=== PATIENT | female | born 2005 | race Caucasian/White ===

== ENCOUNTER 2024-02-25 06:28 | Outpatient (REF) | payer OTHER, SELFPAY | END 2024-02-25 06:29 | disposition home or self-care (01) | LOC: HO.UMASIMG 06:28 | PROVIDERS: Visit Provider Family Medicine | DX: Z13.89 Encounter for screening for other disorder (principal) ==

== ENCOUNTER 2024-02-27 10:11 | Outpatient (REF) | payer OTHER, SELFPAY ==
--- NOTE | ~2024-02-27 | US_ITS ---
EXAMINATION: US SOFT TISSUE HEAD/NECK CLINICAL INFORMATION: Palpable lump left posterior neck for 6 months, no change in size per patient. Left proximal posterior neck. COMPARISON: None available. TECHNIQUE: Linear transducer perdomo-scale and color Doppler examination of the left proximal posterior neck. FINDINGS: Targeted ultrasound images were obtained by the director commercial sales of the area of concern as indicated by the patient in the left posterior proximal neck and demonstrated a 0.6 x 0.3 x 0.6 cm oval, hypoechoic solid mass with well-defined margins and no significant internal vascularity, possibly representing an atypical lymph node. Radiologist was not in attendance. Images were later provided for interpretation. US/US soft tiss head and/or neck IMPRESSION: 0.6 cm oval, hypoechoic solid mass with well-defined margins and no significant internal vascularity, possibly representing an atypical lymph node. Decisions regarding further management should be based on the clinical assessment. Follow-up ultrasound could be considered in 3 months.
== END 2024-02-27 10:12 | disposition home or self-care (01) ==
LOC: HO.UMASIMG 10:11
PROVIDERS: Visit Provider Family Medicine
DX: M54.2 Cervicalgia (principal)
CPT/HCPCS: 76536

== ENCOUNTER 2024-03-16 14:21 | Outpatient (REF) | payer OTHER, SELFPAY ==
--- NOTE | ~2024-03-16 | US_ITS ---
EXAMINATION: US SOFT TISSUE NECK CLINICAL INFORMATION: Enlarged lymph node COMPARISON: Soft tissue ultrasound 02/27/2024 TECHNIQUE: Ultrasound of the neck soft tissues is performed with high- frequency perdomo-scale imaging and color Doppler. FINDINGS: Previously seen palpable lymph node in the left neck was not identified sonographically. A 0.6 cm nonenlarged posterior occipital node is seen, which is unremarkable. No cervical lymphadenopathy. US/US soft tiss head and/or neck IMPRESSION: A previously seen palpable node in the left neck was no longer identified. No cervical lymphadenopathy.
== END 2024-03-16 14:22 | disposition home or self-care (01) ==
LOC: HO.US 14:21
PROVIDERS: PCP Pediatrics; Visit Provider Family Medicine
DX: R22.1 Localized swelling, mass and lump, neck (principal)
CPT/HCPCS: 76536

== ENCOUNTER 2025-02-09 06:25 | Outpatient (REF) | payer OTHER, SELFPAY ==
--- OUTSIDE RECORDS SUMMARY | 2025-02-09 06:28 | XMS_ITS | Encounter Summary ---
Author Organization [facility] Address [address] [place] [address] Care Team Providers Care Extruding Press Adjuster Name Role Phone Maida Yang MD Primary Care Provider +1- [phone] Encounter Details Date Type Department Care Team (Late st Contact Info) Description 01/04/2014 Scanned Document [facility] [address] [place] [address] External, Provider Social History Tobacco Use Types Packs/Day Years Used Date Smoking Tobacco: Never Assessed Comments Unknown Sex and Gender Information Value Date Recorded Sex Assigned at Not on file Legal Sex Female 6:19 AM EST Gender Identity Not on file Sexual Orientation Not on file documented as of this encounter Plan of Treatment Upcoming Encounters Date Type Department Care Team (Late st Contact Info) Description 02/25/2025 1:30 PM EDT Office Visit [facility] [address] [place] [address] Jaqueline Arellano PA [address] [place] [address] [address] [place] [phone] 03/08/2025 1:30 PM EDT Office Visit [facility] RAMP AND CARGO SUPERVISOR [address] [place] [address] Malinda Martinez MD [address] [place] [phone] documented as of this encounter Visit Diagnoses Not on filedocumented in this encounter Care Teams Extruding Press Adjuster Relationship Specialty Start Date End Date Maida Yang MD [address] [place] [phone] PCP - General Pediatrics 03/21/20 documented as of this encounter
--- OUTSIDE RECORDS SUMMARY | 2025-02-09 06:29 | XMS_ITS | Encounter Summary ---
Author Organization [facility] Address [address] [place] [address] Care Team Providers Care English Adjunct Faculty Name Role Phone Maida Yang MD Primary Care Provider +1- [phone] Reason for Visit * Reason Comments Other Encounter Details Date Type Department Care Team (Late st Contact Info) Description 03/28/2022 Telephone [facility] [address] [address] Maida Yang MD [address] [place] [phone] Other Social History Tobacco Use Types Packs/Day Years Used Date Smoking Tobacco: Never Assessed PHQ-2 Answer Date Recorded PHQ-2 Total Score 0 10/04/2021 Comments No Sex and Gender Information Value Date Recorded Sex Assigned at Not on file Legal Sex Female 6:19 AM EST Gender Identity Not on file Sexual Orientation Not on file documented as of this encounter Miscellaneous Notes * Telephone Encounter - Norma Easton - 03/28/2022 4:18 PM EDT When you get a chance, would you be able to give Sangita a call in regards to her back pain and motionsickness (potentially a nausea patch because they will be in the car a lot on their vacation). Thank you! * Telephone Encounter - Norma Easton - 03/28/2022 10:07 AM EDT [facility] mail order service called for a refill prescription for Sangita. JUNE11/30, , 1 mg-20 mcg (21)/75 mg (7) per tablet The call back number is option 2 (reference [id number]). documented in this encounter Plan of Treatment Upcoming Encounters Date Type Department Care Team (Late st Contact Info) Description 02/25/2025 1:30 PM EDT Office Visit [facility] [address] [address] Jaqueline Arellano PA [address] [place] [address] [phone] 03/08/2025 1:30 PM EDT Office Visit [facility] GENERATION MANAGER [address] [address] Malinda Martinez MD [address] [place] [phone] documented as of this encounter Visit Diagnoses Not on filedocumented in this encounter Additional Health Concerns Assessment Noted Time PHQ-9 Depression Total Score: 2 10/04/20 21 11:23 AM EST documented as of this encounter Care Teams English Adjunct Faculty Relationship Specialty Start Date End Date Maida Yang MD [address] [place] [phone] PCP - General Pediatrics 03/21/20 documented as of this encounter
--- OUTSIDE RECORDS SUMMARY | 2025-02-09 06:29 | XMS_ITS | Encounter Summary ---
Author Organization [facility] Address [address] [place] [address] Care Team Providers Care Reproduction Specialist Name Role Phone Maida Yang MD Primary Care Provider +1- [phone] Reason for Visit * Reason Comments Medication Refill Encounter Details Date Type Department Care Team (Late st Contact Info) Description 03/09/2023 Refill [facility] [address] [address] Maida Yang MD [address] [place] [phone] Medication Refill Social History Tobacco Use Types Packs/Day Years Used Date Smoking Tobacco: Never Smokeless Tobacco: Never PHQ-2 Answer Date Recorded PHQ-2 Total Score 1 01/23/2023 Comments No Sex and Gender Information Value Date Recorded Sex Assigned at Not on file Legal Sex Female 6:19 AM EST Gender Identity Not on file Sexual Orientation Not on file documented as of this encounter Miscellaneous Notes * Telephone Encounter - Haley Goode RN - 03/11/2023 10:36 AM EDT Reviewed chart: 01/23/2023 Refilled x3 F/u in a year documented in this encounter Plan of Treatment Upcoming Encounters Date Type Department Care Team (Late st Contact Info) Description 02/25/2025 1:30 PM EDT Office Visit [facility] [place] [address] [facility] [address] [place] [address] Jaqueline Arellano PA [address] [place] [address] [address] [place] [phone] 03/08/2025 1:30 PM EDT Office Visit [facility] THREAD WEAVER [place] [address] [address] Malinda Martinez MD [address] [place] [address] [address] [place] [phone] documented as of this encounter Visit Diagnoses Not on filedocumented in this encounter Additional Health Concerns Assessment Noted Time PHQ-9 Depression Total Score: 3 01/24/20 23 2:12 PM EDT documented as of this encounter Care Teams Reproduction Specialist Relationship Specialty Start Date End Date Maida Yang MD [address] [place] [phone] PCP - General Pediatrics 03/21/20 documented as of this encounter
--- OUTSIDE RECORDS SUMMARY | 2025-02-09 06:29 | XMS_ITS | Data Portability ---
Author Organization [facility], [facility]_Endocrinology_73_[facility] Address [address] [place] [phone] Assessment Encounter Date Assessment Date Assessment LastModified by Organization Details LastModified Time 05/08/2023 05/08/2023 17F with 17 degree thoracolumbar scoliosis and chronic thoracic and lumbar back pain. Imaging reviewed with patient. Diagnosis and treatment options discussed with patient. Recommend conservative treatment including rest, activity modification, stretching and strengthening exercises, heat or ice as tolerated. Recommend trial of physical therapy. Discussed importance of core strengthening. - physical therapy rx provided - NSAIDs as needed for pain and inflammation - follow up 6 weeks for re-eval, sooner if symptoms change or worsen - all questions answered leighton Not available 05/09/2023 14:20:15 Plan of Treatment Reminders Order Date Submit Date Provider Last Modified By Organization Details Last Modified Time Details Appointments None recorded. Lab None recorded. Referral None recorded. Procedures None recorded. Surgeries None recorded. Imaging XR, thoracolumb ar spine, 2 or 3 view 2022 023 [email or web address] [facility] Rad[facility] ? Ortho, [address] [place], [address], 14:20:36 Medication Orders None recorded. Patient TargetsNo targets recorded. Patient InstructionsNo instructions recorded. Reason for Referral None Reported. 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 Medical Equipment None Reported. Allergies No known drug allergies Medications Name Sig Start Date Stop Date Status Note LastModified by Organization Details LastModified Time amoxicillin 875 mg tablet TAKE 1 TABLET BY MOUTH EVERY 12 HOURS FOR 7 DAYS. active Not Available Not Available No t Available ketoconazole 2 % topical cream APPLY A SMALL AMOUNT TO AFFECTED AREA ONCE A DAY active Not Available Not Available No t Available ondansetron 4 mg disintegrating tablet active Not Available Not Available Not Available azithromycin 500 mg tablet TAKE 1 TABLET EVERY DAY FOR 5 DAYS active Not Available Not Available No t Available 11/30 (28) 1 mg-20 mcg (21)/75 mg (7) tablet TAKE 1 TABLET BY MOUTH EVERY DAY active Not Available Not Available No t Available Vitals None Recorded Social History None recorded. Functional Status None recorded. Mental Status None recorded. Family History Nothing Reported. Medical History No medical history recorded. Gynecological HistoryNo gynecological history recorded. Obstetrics History GPAL:G 0 P 0 0 0 0 Past Encounters Encounter ID Performer Location Encounter Start Date Encounter Closed Date Diagnosis/Indication Diagnosis SNOMED-CT Code Diagnosis ICD10 Code Diagnosis Note [id number] Hannah Sorensen [facility] [address] [address] 4 05/08/2023 13:39:14 05/09/2023 14:20:36 Chronic back pain 400473649 M54.59 Adolescent idiopathic scoliosis of thoracolumbar spine 2371811200 10293 M41.125 Health Concerns Section Related Observation LastModified by Organization Detai ls LastModified Time None Recorded Concern Status LastModified by Organization Details LastModified Time None Recorded Advance Directives Directive None Recorded Payers Encounter Date Sequence Insurance Name Policy Number Policy Serrano Covered Member ID Serrano Member ID Guarantor Name 05/08/2023 1 R [id number] Nalini Cronin [id number] Sangita Cronin Notes Date Note Type Note Provider Name and Address Organization Details Recorded Time 05/08/2023 text/html 17F presents for orthopedic evaluation of upper and low back pain that started approximately 4 years ago. She reports current right-sided thoracic pain. Reports over this past year, she has been studying and leaning forwards at a desk which has worsened her pain. Reports low back pain worse with standing for periods of time that lingers after sitting or laying down. Reports pain is thoracic and lumbar spine. Describes pain as burning at times. Reports remote history of tailbone fracture. Hannah Sorensen [facility] 05/09/2023 14:20:29 OBGyn Episode No OBEpisode recorded.
--- OUTSIDE RECORDS SUMMARY | 2025-02-09 06:29 | XMS_ITS | Encounter Summary ---
Author Organization [facility] Address [address] [place] [address] Care Team Providers Care Field Collector Name Role Phone Maida Yang MD Primary Care Provider +1- [phone] Encounter Details Date Type Department Care Team (Late st Contact Info) Description 11/28/2016 Scanned Document [facility] [address] [place] [address] External, Provider Social History Tobacco Use Types [...] PM EDT Office Visit [facility] [address] [place] [address] Jaqueline Arellano PA [address] [place] [address] [address] [place] [phone] 03/08/2025 1:30 PM EDT Office Visit [facility] FORKLIFT MECHANIC [address] [place] [address] Malinda Martinez MD [address] [place] [phone] documented as of this encounter Visit Diagnoses Not on filedocumented in this encounter Additional Health Concerns Assessment Noted Time PHQ-9 Depression Total Score: 0 07/25/20 16 5:14 PM EDT documented as of this encounter Care Teams Field Collector Relationship Specialty Start Date End Date Maida Yang MD [address] [place] [phone] PCP - General Pediatrics 03/21/20 documented as of this encounter
--- OUTSIDE RECORDS SUMMARY | 2025-02-09 06:29 | XMS_ITS | Encounter Summary ---
Author Organization [facility] Address [address] [place] [address] Care Team Providers Care Yard Conductor Name Role Phone Maida Yang MD Primary Care Provider +1- [phone] Encounter Details Date Type Department Care Team (Late st Contact Info) Description 04/10/2016 Scanned Document [facility] [address] [place] [address] External, Provider Social History Tobacco Use Types [...] PM EDT Office Visit [facility] [address] [place] [address] Jaqueline Arellano PA [address] [place] [address] [address] [place] [phone] 03/08/2025 1:30 PM EDT Office Visit [facility] DIRECTOR OF FRONT OFFICE [address] [place] [address] Malinda Martinez MD [address] [place] [phone] documented as of this encounter Visit Diagnoses Not on filedocumented in this encounter Care Teams Yard Conductor Relationship Specialty Start Date End Date Maida Yang MD [address] [place] [phone] PCP - General Pediatrics 03/21/20 documented as of this encounter
--- OUTSIDE RECORDS SUMMARY | 2025-02-09 06:29 | XMS_ITS | Clinical Summary ---
Author Organization [place] [facility] Address [address] [place] [address] Care Team Providers Care Database Administrator Name Role Phone Maida Yang MD Primary Care Provider +1- [phone] Allergies Active Allergy Reactions Criticality Noted Date Comments Amoxicillin Rash Low 12/03/2023 Medications levonorgestrel- ethinyl estradiol (AVIANE,ALESSE, LESSINA) 0.1-20 mg-mcg per tablet Take 1 tablet by mouth daily. 84 tablet 3 5 Active levonorgestrel- ethinyl estradiol (AVIANE,ALESSE, LESSINA) 0.1-20 mg-mcg per tablet Take 1 tablet by mouth daily. 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 Encounters Date Type Department Care Team Description 02/04/2025 Telephone [facility] MOTION PICTURE COMMENTATOR [place] [address] [facility] [address] [place] [address] Malinda Martinez MD Medication Refill 02/02/2025 Orders Only [facility] [place] [address] [place] [address] Linh Hawthorne, BRANDON 02/01/2025 Telephone [facility] [address] [place] [address] Malinda Martinez MD Medication Refill; Appointment from Last 3 Months Immunizations Name Administration Dates Next Due COVID-19 Vaccine - PFIZER 03/14/2021,02/21/2021 DTaP 08/03/2008, 5,02/22/2004,01/17,2003 HPV9 08/08/2017,07/25/2016 Hep A, ped/adol, 2 dose 08/08/2007,08/08/2006 Hep B, adolescent or pediatric 05/26/2004,2003,2003 Hib (PRP-T) 02/06/2005, 4,01/18/2004,11/19 Influenza, injectable, quadr ivalent, preservative free 10/04/2021,08/25/2020,08/19/2019,08/18,08/08/2017,07/25/2016,07/13/2015 ,07/06/2014 Influenza, live, trivalent, intranasal 3,08/26/2012,08/02/2011 Influenza, seasonal, injecta ble, preservative free 11/28/2004,09/13/2004 Influenza, split virus, triv alent, Preservative Free 08/10/2010,11/27/2006,10/12/2005 MMR 08/08/2007,08/08/2004 Meningococcal B, OMV (Bexsero) 11/30/2021,2020 Meningococcal MCV4O - Menveo 07/13/2015 Meningococcal MCV4P - Menactra 08/19/2019 Pneumococcal conjugate PCV 7 11/28/2004, 02/22/2004,2003,11/19 Polio (IPV) 08/03/2008, 5,01/18/2004,12/20 Tdap 07/06/2014 Varicella, live 11/28/2007,08/08/2007 Family History Medical History Relation Name Comments Diabetes Father Heart disease Father High cholesterol Father Hypertension Maternal Grandfather High cholesterol Maternal Grandmother Asthma Mother Heart disease Paternal Grandfather Heart disease Paternal Uncle Relation Name Status Comments Father Alive Maternal Grandfather Maternal Grandmother Mother Alive Paternal Grandfather Paternal Uncle Social History Tobacco Use Types Packs/Day Years Used Date Smoking Tobacco: Never Smokeless Tobacco: Never Tobacco Cessation:Counseling Given: Not Answered Alcohol Use Standard Drinks/Week Comments Yes 0 (1 standard drink = 0.6 oz pur e alcohol) Occasionally PHQ-2 Answer Date Recorded PHQ-2 Total Score 1 01/23/2023 Comments No Sex and Gender Information Value Date Recorded Sex Assigned at Not on file Legal Sex Female 6:19 AM EST Gender Identity Not on file Sexual Orientation Not on file Last Filed Vital Signs Vital Sign Reading Time Taken Comments Blood Pressure 110/70 12/03/2023 2:48 PM EST Pulse 84 01/23/2023 2:08 PM EDT Temperature 36.6 ??C (97.9 ??F) 11/30/2021 4:13 PM ES T Respiratory Rate 16 10/02/2020 3:05 PM EST Oxygen Saturation 99% 01/23/2023 2:08 PM EDT Inhaled Oxygen Concentration - - Weight 94.3 kg (208 lb) 12/03/2023 2:48 PM EST Height 180.3 cm (5' 11 ) 12/03/2023 2:48 PM EST Body Mass Index 29.01 12/03/2023 2:48 PM EST Plan of Treatment Upcoming Encounters Date Type Department Care Team (Late st Contact Info) Description 02/25/2025 1:30 PM EDT Office Visit [facility] [address] [place] [address] Jaqueline Arellano PA [address] [place] [address] [address] [place] [address] 03/08/2025 1:30 PM EDT Office Visit [facility] MOTION PICTURE COMMENTATOR [address] [place] [address] Malinda Martinez MD [address] [facility] [address] [place] [address] Health Maintenance Due Date Last Done Comments Hepatitis C screening 2021 DTaP/TDaP Vaccines (7 - Td or Tdap) 07/06/2024 07/06/2014, 08/03/2008, 02/06/2005, Additional history exists Tetanus adult (Td q 10,TDAP once) 07/06/2024 07/06/2014, 08/03/2008, 02/06/2005, Additional history exists Covid-19 vaccine series ( season) 2024 03/14/2021, 02/21/2021 Cervical cancer screening 2024 Chlamydia screening 12/03/2024 12/03/2023, 12/03/2023, 01/23/2023, Additional history exists Influenza Vaccine Pediatric (Season Ended) 2025 10/04/2021, 08/25/2020, 08/19/2019, Additional history exists RSV Immunization (1 - 1-dose 75+ series) 2078 Hepatitis B vaccine series Completed 05/26, 2003, 2003 Pneumococcal Vaccine (2 - 49 years) Completed 11/28/2004, 02/22/2004, 2003, Additional history exists HIB Vaccines Completed 02/06/2005, 02/09, 01/18/2004, Additional history exists Hepatitis A Vaccines Completed 08/08/2007, 08/08/20 06 MMR Vaccines Completed 08/08/2007, 08/08/2004 Varicella Vaccines Completed 11/28/2007, 08/08/2007 IPV Vaccines Completed 08/03/2008, 01/10, 01/18/2004, Additional history exists HPV vaccine series Completed 08/08/2017, 07/25/2016 Meningococcal Vaccine Completed 08/19/2019, 015 HIV screening Completed 10/04/2021 Rotavirus Vaccines Aged Out No longer eligible based on patient's age to complete this topic Procedures Procedure Name Priority Date/Time Associated Diagnosis Comments CHLAMYDIA TRACHOMATIS, NAAT (LAB ORDER ONLY) ([facility] L LMW Y) Routine 12/03/2023 8:27 PM EST Well woman exam with routine gynecological exam Encounter for initial prescription of contraceptive pills HIV-I/O/2 AG/AB (4TH GEN) PRELIM W/CASCADE TO SUPP TESTING (L) Routine 10/04/2021 12:02 PM EST from Last 3 Months or Most Recently Relevant to Health Maintenance Results * Chlamydia trachomatis, NAAT ([facility] Y) (12/03/2023 8:27 PM EST) Chlamydia DNA Probe Negative Negative 12/04/2023 6:00 AM EST [facility] DEPARTMENT OF LABORATORY MEDICINE Specimen Source Vagina 12/04/2023 6:00 AM EST [facility] DEPARTMENT OF PATHOLOGY Swab SPECIMEN FROM VAGINA / Unknown Collection / Unknown 12/03/2023 8:27 PM EST 12/03/2023 8:31 PM EST us Malinda Martinez MD MICROBIOLOGY - GENERAL ORDERABL ES Final Result [facility] DEPARTMENT OF LABORATORY MEDICINE [address] [place] [address], [facility] [phone] [facility] DEPARTMENT OF PATHOLOGY [address] [place] [address] * HIV-I/O/2 Ag/Ab (4th gen) prelim w/cascade to supp testing (L) (10/04/2021 12:02 PM EST) HIV Screen 4th Genreation w/Reflex Non Reactive Non Reactive [facility] 1 10/04/2021 12:0 2 PM EST 10/04/2021 Narrative [facility] - 10/07/2021 11:05 PM EST Performed at: ??01 - [facility] [address] ??[id number] Airborne Operations: Sherry Agustin MD, Phone: ??[phone] Maida Yang MD LAB BLOOD ORDERABLES Final Result [facility] 1 from Last 3 Months or Most Recently Relevant to Health Maintenance Insurance UMR UMR UMR UMR Care Teams Database Administrator Relationship Specialty Start Date End Date Maida Yang MD [address] [place] [phone] PCP - General Pediatrics 03/21/20
--- OUTSIDE RECORDS SUMMARY | 2025-02-09 06:29 | XMS_ITS | Encounter Summary ---
Author Organization [facility] Address [address] [place] [address] Care Team Providers Care Plant Accountant Name Role Phone Maida Yang MD Primary Care Provider +1- [phone] Reason for Visit * Reason Comments Medication Refill Encounter Details Date Type Department Care Team (Late st Contact Info) Description 12/23/2022 Refill [facility] [address] [address] Maida Yang MD [address] [place] [phone] Medication Refill Social History Tobacco Use [...] Encounters Date Type Department Care Team (Late Contact Info) Description 02/25/2025 1:30 PM EDT Office Visit [facility] [address] [place] [address] Jaqueline Arellano PA [address] [place] [address] [address] [place] [address] 03/08/2025 1:30 PM EDT Office Visit [facility] GROUP SUPERVISOR YARD [address] [place] [address] Malinda Martinez MD 145 [facility] [address] [place] [address] documented as of this encounter Visit Diagnoses Not on filedocumented in this encounter Additional Health Concerns Assessment Noted Time PHQ-9 Depression Total Score: 2 10/04/20 21 11:23 AM EST documented as of this encounter Care Teams Plant Accountant Relationship Specialty Start Date End Date Maida Yang MD [address] [place] [phone] PCP - General Pediatrics 03/21/20 documented as of this encounter
--- OUTSIDE RECORDS SUMMARY | 2025-02-09 06:29 | XMS_ITS | Encounter Summary ---
Author Organization [facility] Address [address] [place] [address] Care Team Providers Care Cilnical Scientist Name Role Phone Maida Yang MD Primary Care Provider +1- [phone] Encounter Details Date Type Department Care Team (Late st Contact Info) Description 02/02/2025 Orders Only [facility] [address] [place] [address] Linh Hawthorne, BRANDON Social History Tobacco Use Types Packs/Day Years Used Date Smoking Tobacco: Never Smokeless Tobacco: Never Alcohol Use Standard Drinks/Week Comments Yes 0 [...] Description 02/25/2025 1:30 PM EDT Office Visit [facility] Family Medicine [address] [place] [address] Jaqueline Arellano PA [address] [place] [address] [address] [place] [address] 03/08/2025 1:30 PM EDT Office Visit [facility] PAD CUTTER [address] [place] [address] Malinda Martinez MD [address] [facility] [address] [place] [phone] documented as of this encounter Visit Diagnoses Not on filedocumented in this encounter Additional Health Concerns Assessment Noted Time PHQ-9 Depression Total Score: 3 01/24/20 23 2:12 PM EDT documented as of this encounter Care Teams Cilnical Scientist Relationship Specialty Start Date End Date Maida Yang MD [address] [place] [phone] PCP - General Pediatrics 03/21/20 documented as of this encounter
--- OUTSIDE RECORDS SUMMARY | 2025-02-09 06:29 | XMS_ITS | Encounter Summary ---
Author Organization [facility] Address [address] [place] [address] Care Team Providers Care Sheriff'S Detective Name Role Phone Maida Yang MD Primary Care Provider +1- [phone] Encounter Details Date Type Department Care Team (Late st Contact Info) Description 12/30/2018 Scanned Document [facility] Pediatrics [address] [id number] External, Provider Social History Tobacco Use Types Packs/Day Years Used Date Smoking Tobacco: Never Assessed Comments No Sex and Gender Information Value Date Recorded Sex Assigned at Not on file Legal Sex Female 6:19 AM EST Gender Identity Not on file Sexual Orientation Not on file documented as of this encounter Plan of Treatment Upcoming Encounters Date Type Department Care Team (Late Contact Info) Description 02/25/2025 1:30 PM EDT Office Visit [facility] [place] 90 [facility] [address] [place] [address] Jaqueline Arellano PA [address] [place] [address] [address] [place] [phone] 03/08/2025 1:30 PM EDT Office Visit [facility] AIR BAG STRIPPER [address] [place], [place] [address] Malinda Martinez MD [address] [place] [phone] documented as of this encounter Visit Diagnoses Not on filedocumented in this encounter Additional Health Concerns Assessment Noted Time PHQ-9 Depression Total Score: 1 08/18/20 18 3:01 PM EDT documented as of this encounter Care Teams Sheriff'S Detective Relationship Specialty Start Date End Date Maida Yang MD [address] [place] [phone] PCP - General Pediatrics 03/21/20 documented as of this encounter
--- OUTSIDE RECORDS SUMMARY | 2025-02-09 06:29 | XMS_ITS | Encounter Summary ---
Author Organization [facility] Address [address] [place] [address] Care Team Providers Care Ad Taker Name Role Phone Maida Yang MD Primary Care Provider +1- [phone] Reason for Visit * Reason Onset Date Comments Medication Refill 02/04/2025 Encounter Details Date Type Department Care Team (Late st Contact Info) Description 02/04/2025 Telephone [facility] RELIGIOUS ASSISTANT [address] [place] [address] Malinda Martinez MD [address] [place] [address] [address] [place] [address] Medication Refill Social History Tobacco Use Types [...] as of this encounter Miscellaneous Notes * Addendum Note - Malinda Martinez MD - 02/04/2025 1:51 PM EDTAddended by: MALINDA MARTINEZ on: 02/04/2025 01:51 PM Modules accepted: Orders * Telephone Encounter - Lavern Marcum - 02/04/2025 10:29 AM EDT Medication: Medication Request Message from the Tree Surgeon Helper What is the medication name? Levonorgestrel-ethinyl estradiol Dosage and frequency? Is the request for a new medication or a refill? Refill, patient looking to have prescription sent to [facility] NOTE: If applicable for chronic medication refills, pend for 90:4. Confirmed w/ Patient Preferred Pharmacy: [facility] [address] [place] [phone] Last office visit in this dept.: Visit date not found Next office visit in this dept.: 03/08/2025 documented in this encounter Plan of Treatment Upcoming Encounters Date Type Department Care Team (Late st Contact Info) Description 02/25/2025 1:30 PM EDT Office Visit [facility] [address] [place] [address] Jaqueline Arellano PA [address] [place] [address] [address] [place] [phone] 03/08/2025 1:30 PM EDT Office Visit [facility] RELIGIOUS ASSISTANT [place] [address] [phone] Malinda Martinez MD 145 [facility] 215 [place] [phone] documented as of this encounter Visit Diagnoses Not on filedocumented in this encounter Additional Health Concerns Assessment Noted Time PHQ-9 Depression Total Score: 3 01/24/20 23 2:12 PM EDT documented as of this encounter Care Teams Ad Taker Relationship Specialty Start Date End Date Maida Yang MD [address] [place] [address] PCP - General Pediatrics 03/21/20 documented as of this encounter
== END 2025-02-09 06:26 | disposition home or self-care (01) ==
LOC: HO.UMASIMG 06:25
PROVIDERS: Visit Provider Family Medicine
DX: Z13.89 Encounter for screening for other disorder (principal)

== ENCOUNTER 2025-02-11 06:39 | Outpatient (REF) | payer OTHER, SELFPAY ==
--- NOTE | ~2025-02-11 | US_ITS ---
CLINICAL HISTORY: Left posterior cervical node US neck Comparison: None Findings: The posterior neck near the base of the skull scanned. There is a circumscribed hypoechoic 0.6 x 0.3 x 0.3 cm mass, possible benign lymph node. There are no other cystic or solid masses and no pathological appearing lymph nodes. Impression: 1. Possible benign lymph node corresponding to patient's lump. Clinical follow-up recommended. This document has been electronically signed by: Dario Will MD on 02/12/2025 09:06:50
--- OUTSIDE RECORDS SUMMARY | 2025-02-11 06:49 | XMS_ITS | Encounter Summary ---
Author Organization [facility] Address [address] [place] [address] Care Team Providers Care Baby Sitter Name Role Phone Maida Yang MD Primary Care Provider +1- [phone] Reason for Visit * Reason Comments Other Encounter Details Date Type Department Care Team (Late st Contact Info) Description 03/28/2022 Telephone [facility] Pediatrics [address] [address] Maida Yang MD [address] [place] [phone] Other Social History Tobacco Use Types [...] Norma Easton - 03/28/2022 10:07 AM EDT [facility] Pharmacy's mail order service called for a refill prescription for Sangita. JUNE11/30, , 1 mg-20 mcg (21)/75 mg (7) per tablet The call back number is option 2 (reference [id number]). documented in this encounter Plan of Treatment Upcoming Encounters Date Type Department Care Team (Late st Contact Info) Description 02/25/2025 1:30 PM EDT Office Visit [facility] Family Medicine [address] [address] Jaqueline Arellano PA [address] [place] [address] [phone] 03/08/2025 1:30 PM EDT Office Visit [facility] SENIOR PLANNING MANAGER [address] [address] Malinda Martinez MD [address] [place] [phone] documented as of this encounter Visit Diagnoses Not on filedocumented in this encounter Additional Health Concerns Assessment Noted Time PHQ-9 Depression Total Score: 2 10/04/20 21 11:23 AM EST documented as of this encounter Care Teams Baby Sitter Relationship Specialty Start Date End Date Maida Yang MD [address] [place] [phone] PCP - General Pediatrics 03/21/20 documented as of this encounter
--- OUTSIDE RECORDS SUMMARY | 2025-02-11 06:49 | XMS_ITS | Encounter Summary ---
Author Organization [facility] Address [address] [place] [address] Care Team Providers Care Sales Project Engineer Name Role Phone Maida Yang MD Primary Care Provider +1- [phone] Encounter Details Date Type Department Care Team (Late st Contact Info) Description 02/02/2025 Orders Only [facility] [address] [place] [address] Linh Hawthorne, BRANDON Social History Tobacco Use [...] Description 02/25/2025 1:30 PM EDT Office Visit [facility] Family Medicine [address] [place] [address] Jaqueline Arellano PA [address] [place] [address] [address] [place] [address] 03/08/2025 1:30 PM EDT Office Visit [facility] ROLLOFF TRUCK DRIVER [address] [place] [address] Malinda Martinez MD 145 [facility] 215 [place] [phone] documented as of this encounter Visit Diagnoses Not on filedocumented in this encounter Additional Health Concerns Assessment Noted Time PHQ-9 Depression Total Score: 3 01/24/20 23 2:12 PM EDT documented as of this encounter Care Teams Sales Project Engineer Relationship Specialty Start Date End Date Maida Yang MD [address] [place] [phone] PCP - General Pediatrics 03/21/20 documented as of this encounter
--- OUTSIDE RECORDS SUMMARY | 2025-02-11 06:49 | XMS_ITS | Encounter Summary ---
Author Organization [facility] Address [address] [place] [address] Care Team Providers Care Bounty Trapper Name Role Phone Maida Yang MD Primary Care Provider +1- [phone] Encounter Details Date Type Department Care Team (Late st Contact Info) Description 12/30/2018 Scanned Document [facility] Pediatrics [address] [phone] External, Provider Social History Tobacco Use Types [...] PM EDT Office Visit [facility] [place] 90 [facility] [address] [place] [address] Jaqueline Arellano PA [address] [place] [address] [address] [place] [phone] 03/08/2025 1:30 PM EDT Office Visit [facility] DISTRICT COMMERCIAL SUPERINTENDENT [address] [place], [place] [address] Malinda Martinez MD [address] [place] [phone] documented as of this encounter Visit Diagnoses Not on filedocumented in this encounter Additional Health Concerns Assessment Noted Time PHQ-9 Depression Total Score: 1 08/18/20 18 3:01 PM EDT documented as of this encounter Care Teams Bounty Trapper Relationship Specialty Start Date End Date Maida Yang MD [address] [place] [phone] PCP - General Pediatrics 03/21/20 documented as of this encounter
--- OUTSIDE RECORDS SUMMARY | 2025-02-11 06:49 | XMS_ITS | Encounter Summary ---
Author Organization [facility] Address [address] [place] [address] Care Team Providers Care Fountain Waitress/Waiter Name Role Phone Maida Yang MD Primary Care Provider +1- [phone] Encounter Details Date Type Department Care Team (Late st Contact Info) Description 11/28/2016 Scanned Document [facility] [address] [place] [address] External, Provider Social History Tobacco Use Types [...] PM EDT Office Visit [facility] [address] [place] [address] Jaqueline Arellano PA [address] [place] [address] [address] [place] [phone] 03/08/2025 1:30 PM EDT Office Visit [facility] BILLPOSTING SUPERVISOR [address] [place] [address] Malinda Martinez MD [address] [place] [phone] documented as of this encounter Visit Diagnoses Not on filedocumented in this encounter Additional Health Concerns Assessment Noted Time PHQ-9 Depression Total Score: 0 07/25/20 16 5:14 PM EDT documented as of this encounter Care Teams Fountain Waitress/Waiter Relationship Specialty Start Date End Date Maida Yang MD [address] [place] [phone] PCP - General Pediatrics 03/21/20 documented as of this encounter
--- OUTSIDE RECORDS SUMMARY | 2025-02-11 06:49 | XMS_ITS | Data Portability ---
Author Organization [facility], G_Endocrinology_73_[facility] Address [address] [place] [address] Assessment Encounter Date Assessment Date Assessment LastModified [...] or 3 view 2022 023 [email or web address] [facility] Radiology ? Ortho, [address] [place], [address], 14:20:36 Medication Orders None recorded. Patient TargetsNo targets recorded. Patient InstructionsNo instructions recorded. Reason for Referral None Reported. 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 Medical Equipment [...] SNOMED-CT Code Diagnosis ICD10 Code Diagnosis Note [id number] Hannah Sorensen [facility]_Ortho pedics_30 30_[facility] [address] [place] [address] 4 05/08/2023 13:39:14 05/09/2023 14:20:36 Chronic back pain 093100118 M54.59 Adolescent idiopathic scoliosis of thoracolumbar spine 7135815652 29378 M41.125 Health Concerns Section Related Observation LastModified by Organization Detai ls LastModified Time None Recorded Concern Status LastModified by Organization Details LastModified Time None Recorded Advance Directives Directive None Recorded Payers Encounter Date Sequence Insurance Name Policy Number Policy Serrano Covered Member ID Serrano Member ID Guarantor Name 05/08/2023 1 [id number] Nalini Cronin [id number] Sangita Cronin Notes Date Note Type Note [...] remote history of tailbone fracture. Hannah Sorensen [facility] 05/09/2023 14:20:29 OBGyn Episode No OBEpisode recorded.
--- OUTSIDE RECORDS SUMMARY | 2025-02-11 06:49 | XMS_ITS | Encounter Summary ---
Author Organization [facility] Address [address] [place] [address] Care Team Providers Care Office Assistance Name Role Phone Maida Yang MD Primary Care Provider +1- [phone] Reason for Visit * Reason Comments Medication Refill Encounter Details Date Type Department Care Team (Late st Contact Info) Description 03/09/2023 Refill [facility] [address] [address] Maida Yang MD [address] [place] [phone] Medication Refill Social History Tobacco Use [...] PM EDT Office Visit [facility] [place] 90 [facility] [address] [place] [address] Jaqueline Arellano PA [address] [place] [address] [address] [place] [phone] 03/08/2025 1:30 PM EDT Office Visit [facility] RESEARCH SUPPORT SPECIALIST [place] [address] [address] Malinda Martinez MD [address] [place] [address] [address] [place] [phone] documented as of this encounter Visit Diagnoses Not on filedocumented in this encounter Additional Health Concerns Assessment Noted Time PHQ-9 Depression Total Score: 3 01/24/20 23 2:12 PM EDT documented as of this encounter Care Teams Office Assistance Relationship Specialty Start Date End Date Maida Yang MD [address] [place] [phone] PCP - General Pediatrics 03/21/20 documented as of this encounter
--- OUTSIDE RECORDS SUMMARY | 2025-02-11 06:49 | XMS_ITS | Encounter Summary ---
Author Organization [facility] Address [address] [place] [address] Care Team Providers Care Geography Faculty Member Name Role Phone Maida Yang MD Primary Care Provider +1- [phone] Reason for Visit * Reason Comments Medication Refill Encounter Details Date Type Department Care Team (Late st Contact Info) Description 12/23/2022 Refill [facility] [address] [address] Maida Yang MD [address] [place] [phone] Medication Refill Social History Tobacco Use [...] PM EDT Office Visit [facility] [address] [place] [address] Jaqueline Arellano PA [address] [place] [address] [address] [place] [address] 03/08/2025 1:30 PM EDT Office Visit [facility] ABORIGINAL EDUCATION WORKER COORDINATOR [address] [place] [address] Malinda Martinez MD [address] [facility] 215 [place] [address] documented as of this encounter Visit Diagnoses Not on filedocumented in this encounter Additional Health Concerns Assessment Noted Time PHQ-9 Depression Total Score: 2 10/04/20 21 11:23 AM EST documented as of this encounter Care Teams Geography Faculty Member Relationship Specialty Start Date End Date Maida Yang MD [address] [place] [phone] PCP - General Pediatrics 03/21/20 documented as of this encounter
--- OUTSIDE RECORDS SUMMARY | 2025-02-11 06:49 | XMS_ITS | Encounter Summary ---
Author Organization [facility] Address [address] [place] [address] Care Team Providers Care Office Services Manager Name Role Phone Maida Yang MD Primary Care Provider +1- [phone] Encounter Details Date Type Department Care Team (Late st Contact Info) Description 01/04/2014 Scanned Document [facility] [address] [place] [address] External, Provider Social History Tobacco Use Types [...] PM EDT Office Visit [facility] [address] [place] [address] Jaqueline Arellano PA [address] [place] [address] [address] [place] [phone] 03/08/2025 1:30 PM EDT Office Visit [facility] GROUND DEFENCE OFFICER [address] [place] [address] Malinda Martinez MD [address] [place] [phone] documented as of this encounter Visit Diagnoses Not on filedocumented in this encounter Care Teams Office Services Manager Relationship Specialty Start Date End Date Maida Yang MD [address] [place] [phone] PCP - General Pediatrics 03/21/20 documented as of this encounter
--- OUTSIDE RECORDS SUMMARY | 2025-02-11 06:49 | XMS_ITS | Clinical Summary ---
Author Organization [place] [facility] Address [address] [place] [address] Care Team Providers Care Transformer Molder Name Role Phone Maida Yang MD Primary Care Provider +1- [phone] Allergies Active Allergy Reactions Criticality Noted Date [...] Department Care Team Description 02/04/2025 Telephone [facility] LIVESTOCK PRODUCER [place] 145 [facility] [address] [place] [address] Malinda Martinez MD Medication Refill 02/02/2025 Orders Only [facility] OBGYN [address] [place] [address] Linh Hawthorne, BRANDON 02/01/2025 Telephone [facility] OBGYN YAN[facility]MA [address] [place] [address] Malinda Martinez MD Medication Refill; [...] PM EDT Office Visit [facility] [address] [place] [address] Jaqueline Arellano PA [address] [place] [address] [address] [place] [address] 03/08/2025 1:30 PM EDT Office Visit [facility] LIVESTOCK PRODUCER [address] [place] [address] Malinda Martinez MD 145 [facility] 215 [place] [address] Health Maintenance Due Date Last [...] Comments CHLAMYDIA TRACHOMATIS, NAAT (LAB ORDER ONLY) ([facility] L LMW Y) Routine 12/03/2023 8:27 PM EST Well woman exam with routine gynecological exam Encounter for initial prescription of contraceptive pills HIV-I/O/2 AG/AB (4TH GEN) PRELIM W/CASCADE TO SUPP TESTING (L) Routine 10/04/2021 12:02 PM EST from Last 3 Months or Most Recently Relevant to Health Maintenance Results * Chlamydia trachomatis, NAAT ([facility] Y) (12/03/2023 8:27 PM EST) Chlamydia DNA Probe Negative Negative 12/04/2023 6:00 AM EST [facility] DEPARTMENT OF LABORATORY MEDICINE Specimen Source Vagina 12/04/2023 6:00 AM EST [facility] DEPARTMENT OF PATHOLOGY Swab SPECIMEN FROM VAGINA / Unknown Collection / Unknown 12/03/2023 8:27 PM EST 12/03/2023 8:31 PM EST us Malinda Martinez MD MICROBIOLOGY - GENERAL ORDERABL ES Final Result [facility] DEPARTMENT OF LABORATORY MEDICINE [address] [place] [address], [facility] [phone] [facility] DEPARTMENT OF PATHOLOGY [address] [place] [address] * HIV-I/O/2 Ag/Ab (4th gen) prelim w/cascade to supp testing (L) (10/04/2021 12:02 PM EST) HIV Screen 4th Genreation w/Reflex Non Reactive Non Reactive [facility] 1 10/04/2021 12:0 2 PM EST 10/04/2021 Narrative [facility] - 10/07/2021 11:05 PM EST Performed at: ??01 - [facility] [address] ??[id number] Roofing Apprentice: Sherry Agustin MD, Phone: ??[phone] Maida Yang MD LAB BLOOD ORDERABLES Final Result [facility] 1 from Last 3 Months or Most Recently Relevant to Health Maintenance Insurance UMR UMR UMR UMR Care Teams Transformer Molder Relationship Specialty Start Date End Date Maida Yang MD [address] [place] [phone] PCP - General Pediatrics 03/21/20
--- OUTSIDE RECORDS SUMMARY | 2025-02-11 06:49 | XMS_ITS | Encounter Summary ---
Author Organization [facility] Address [address] [place] [address] Care Team Providers Care Glaciologist Name Role Phone Maida Yang MD Primary Care Provider +1- [phone] Encounter Details Date Type Department Care Team (Late st Contact Info) Description 04/10/2016 Scanned Document [facility] [address] [place] [address] External, Provider Social History Tobacco Use Types [...] PM EDT Office Visit [facility] [address] [place] [address] Jaqueline Arellano PA [address] [place] [address] [address] [place] [phone] 03/08/2025 1:30 PM EDT Office Visit [facility] TRAVEL SERVICES PROFESSIONAL [address] [place] [address] Malinda Martinez MD [address] [place] [phone] documented as of this encounter Visit Diagnoses Not on filedocumented in this encounter Care Teams Glaciologist Relationship Specialty Start Date End Date Maida Yang MD [address] [place] [phone] PCP - General Pediatrics 03/21/20 documented as of this encounter
== END 2025-02-11 06:40 | disposition home or self-care (01) ==
LOC: HO.UMASIMG 06:39
PROVIDERS: Visit Provider Family Medicine
DX: R59.0 Localized enlarged lymph nodes (principal)
CPT/HCPCS: 76536

== ENCOUNTER → 2025-02-11 08:30 | Outpatient (BNV) | payer OTHER, SELFPAY | PROVIDERS: Visit Provider Specialist | DX: R59.0 Localized enlarged lymph nodes (principal) | CPT/HCPCS: 76536 ==